=== PATIENT | male | born 2005 | race Two or more races ===

== ENCOUNTER → 2025-04-12 | Outpatient (CLI) | payer OTHER, SELFPAY ==
--- NOTE | 2025-04-12 | XR_ITS ---
Examination: Fingers, right hand first digit 3 views Technique: AP, oblique, lateral views right hand first digit 3 views. Exam date and time: April 12, 2025 1214 hours INDICATIONS: Injury to the hand today with first digit pain FINDINGS: Deformity at the base of the distal phalanx first digit but no definite acute fracture IMPRESSION: No definite acute fracture Repeat this study short-term if pain persists
== END | disposition home or self-care (01) ==
PROVIDERS: PCP Physician Assistant; Referring Provider Physician Assistant; Visit Provider Physician Assistant
DX: S67.01XA Crushing injury of right thumb, initial encounter (principal); X58.XXXA Exposure to other specified factors, initial encounter
CPT/HCPCS: 73140

== ENCOUNTER → 2025-06-06 | Outpatient (CLI) | payer OTHER, SELFPAY ==
--- NOTE | 2025-06-06 12:28 | XR_ITS ---
EXAMINATION: Ankle, left 3 views . Technique: Ankle AP, oblique, lateral 3 views Date and time of exam: June 06, 2025 1318 hours INDICATIONS: Injury to the ankle today, ankle pain. FINDINGS: No fracture or dislocation. 2 mm plantar bony calcaneal spur IMPRESSION: No fracture or dislocation
== END | disposition home or self-care (01) ==
LOC: CDIM 12:14
PROVIDERS: Referring Provider Family Medicine; Visit Provider Family Medicine
DX: S90.02XA Contusion of left ankle, initial encounter (principal); X58.XXXA Exposure to other specified factors, initial encounter
CPT/HCPCS: 73610